=== PATIENT | female | born 1985 | race Two or more races ===

== ENCOUNTER 2017-06-30 13:30 | Inpatient (IN) | payer MEDICAID ==
[~2017-06-30] VITALS: Ht 157.5 cm; Wt 81.2 kg
[~2017-06-30 13:30] MED LIST: PREN1TAB49
[2017-06-30 14:22] VITALS: Ht 157.5 cm; Wt 81.2 kg
[2017-06-30 14:24] VITALS: BP 113/73; PULSE 77; RESP 18
[2017-06-30] MEDS ORDERED: CEFAZOLIN 2 GM/50 ML (PMX) 50 ML IV SCH (14:30)
[2017-06-30] MEDS ORDERED: OXYTOCIN 30 UNITS/LR 500 ML IV PRN (14:30)
[2017-06-30] MEDS ORDERED: CARBOPROST 250 MCG INJ IM PRN (14:30)
[2017-06-30] MEDS ORDERED: METHYLERGONOVINE 0.2 MG INJ IM PRN (14:30)
[2017-06-30] MEDS ORDERED: CEFAZOLIN 2 GM/50 ML (PMX) 50 ML IVPB ONE (14:30)
[2017-06-30 14:41] LABS: BASOPHILS % 0.2 % (0.0-2.0); EOSINOPHILS # 0.1 10^3/ul (0.0-0.5); EOSINOPHILS % 0.6 % (0.0-7.0); HEMATOCRIT 41.5 % (37.0-47.0); HEMOGLOBIN 14.6 g/dl (12.0-16.0); LYMPHOCYTES # 1.6 10^3/ul (0.8-2.9); LYMPHOCYTES % 17.9 % (15.0-51.0); MEAN CORPUSCULAR HEMOGLOBIN 32.2 pg (29.0-33.0); MEAN CORPUSCULAR HGB CONC 35.2 g/dl (32.0-37.0); MEAN CORPUSCULAR VOLUME 91.4 fl (82.0-101.0); MEAN PLATELET VOLUME 10.6 fl (7.4-10.4); MONOCYTE # 0.5 10^3/ul (0.3-0.9); NEUTROPHIL # 6.8 10^3/ul (1.6-7.5); PLATELET COUNT 272 10^3/UL (140-415); RED BLOOD COUNT 4.54 10^6/ul (4.20-5.40); RED CELL DISTRIBUTION WIDTH 12.7 % (11.5-14.5)
[2017-06-30 15:28] LABS: INR 0.91; PARTIAL THROMBOPLASTIN TIME 27.1 Sec (25.0-35.0); PROTIME 12.3 Sec (12.2-14.2)
[2017-06-30] MEDS: LACTATED RINGER'S 1,000 ML IV SCH ×2 (16:13→22:30)
[2017-06-30] MEDS ORDERED: OXYTOCIN 30 UNITS/LR 500 ML IV SCH (16:30)
[2017-06-30] MEDS ORDERED: CITRIC ACID/NA CITRATE 30 ML CUP ONE (17:32)
[2017-06-30] MEDS ORDERED: ONDANSETRON 4 MG INJ ONE ×2 (17:32→18:15)
--- NOTE | 2017-06-30 17:58 | HP ---
Date/Time of Note Date/Time of Note DATE: 06/30/17 TIME: 17:54 OB - History Hx of Present Free Text/Dictation Admitted for repeat at term Last Menstrual Period: Oct 06, 2016 Estimated Due Date: Jul 06, 2017 : 3 Para: 2 Care: Good Care Obstetrical Complications: None Medical Complications: None, Other (Previous 2) Past Family/Social History * Past Medical, Surgical, Family and Obstetric Histories reviewed from chart. Blood Type: O+ Rubella: immune RPR/VDRL: Negative GBS Status: Negative HBsAG: Negative OB Admission Exam Vital Signs Vital Signs Vital Signs Date Time Temp Pulse Resp B/P Pulse Ox O2 Delivery O2 Flow Rate FiO2 06/30/17 14:24 98.1 77 18 113/73 Room Air Physical Exam HEENT: WNL Heart: Rhythm Normal Lungs: Clear, Equal Abdomen: WNL Extremities: Normal Reflexes: Normal Cervical Dilatation: None Effacement: 0% Station: -3 Membranes: Intact Heart Rate: 150's Accelerations: Accelerations Present Decelerations: No Decelerations Varibility: Marked Contractions on Admission: None Last 72 hours Lab Results CBC & BMP 06/30/17 14:10 OB Assessment/Plan Reason for admission: section Other Assessment: Term gestation 2 Other plan: Repeat section LIAT RENDON MD Jun 30, 2017 17:58
[2017-06-30] MEDS ORDERED: CITRIC ACID/NA CITRATE 30 ML CUP PO ONE (18:00)
[2017-06-30] MEDS ORDERED: ONDANSETRON 4 MG INJ IV ONE (18:00)
[2017-06-30] MEDS ORDERED: CEFAZOLIN 1 GM INJ ONE (18:00)
[2017-06-30] MEDS ORDERED: OXYTOCIN 30 UNITS/LR 500 ML BAG IV ONE (18:00)
[2017-06-30] MEDS ORDERED: PHENYLephrine (100 MCG/ML) 5ML SYG ONE ×2 (18:15→18:56)
[2017-06-30] MEDS ORDERED: METOCLOPRAMIDE 10 MG INJ ONE (18:15)
[2017-06-30] MEDS ORDERED: morphine SULFATE/PF (10 MG/10 ML) INJ ONE (18:15)
[2017-06-30] MEDS ORDERED: OXYTOCIN 10 UNIT INJ ONE (18:15)
[2017-06-30] MEDS ORDERED: DEXAMETHASONE 4 MG/ML 1 ML INJ ONE (18:16)
[2017-06-30] MEDS ORDERED: KETOROLAC 30 MG INJ ONE (18:16)
[2017-06-30] MEDS ORDERED: HYDROmorphONE 1 MG/ML SYG IV PRN ×2 (19:00)
[2017-06-30] MEDS ORDERED: ACETAMINOPHEN 500 MG TAB PO PRN (19:00)
[2017-06-30] MEDS ORDERED: DIPHENHYDRAMINE 50 MG INJ IV PRN (19:00)
[2017-06-30] MEDS ORDERED: NALOXONE (0.4 MG/ML) INJ IV PRN (19:00)
[2017-06-30] MEDS ORDERED: morphine 4 MG/ML VIAL IV PRN (19:00)
[2017-06-30] MEDS ORDERED: morphine 2 MG INJ IV PRN (19:00)
[2017-06-30] MEDS ORDERED: KETOROLAC 30 MG INJ IV PRN (19:00)
[2017-06-30] MEDS ORDERED: NALBUPHINE HCL (10 MG/1 ML) INJ IV PRN (19:00)
[2017-06-30] MEDS ORDERED: HYDROCODONE/APAP (5/325) TAB PO PRN (19:00)
--- NOTE | 2017-06-30 19:44 | OPR ---
Operative Report Planned Procedure Procedure date Jun 30, 2017 Procedure(s) repeat C/S Performed by see signature line Assisting provider: RENAE NI MD Anesthesiologist: LORI SHIRLEY MD Pre-procedure diagnosis term gestation previous C/S Anesthesia Type: spinal Procedure Description Under satisfactory anaesthesia a midline incision was made from 2 3 fingerbreadth below the bellybutton 2-3 fingerbreadth above the symphysis of pubis around the previous scar and previous scar was removed Incision was extended laterally to the border of the Recti muscles on either sides. Incision was carried down with sharp and blunt dissection until fascia was reached. Anterior Recti muscle fascia was incised in mid portion and incision extended superiorly and inferiorly to the border of skin incision. Fascia was mobilized from muscle superiorly and Recti muscles were from midline using sharp and blunt dissection. Peritoneum was visualized; Avoiding bowel and bladder it was incised . Incision was extended superiorly and inferiorly. Bladder blade was placed. Posterior peritoneum covering the lower segment of the uterus and lower segment of the uterus were incised.Low transverse uterine incision was made on lower segment of the uterus. Incision extended laterally to the border of Round Lig. on either sides and baby was delivered from OT. position . Amniotic fluid appeared clear. Cord blood was obtained and cord had 3 vessels . Placenta was delivered spontaneously and appeared intact and complete. Intrauterine cavity was rubbed with a laparotomy sponge. Uterine incision was closed in 2 layers using running stitches of No1 Monocryl. Hemostasis appeared secure. Ovaries and Fallopian tubes were within normal limits. Announcing needle, lap sponge and instrument count to be correct abdomen was closed in layers as follows: Peritoneum and Recti muscles with running stitches of 20 Vicryl. Fascia with running stitch of No 1 PDS. Subcutaneous tissue with running stitches of 20 Chromic and skin was closed with subcuticular stitches of 2 Monocryl and Dermabond. Patient tolerated the procedure well and was transferred to [facility] in good condition. Post-Procedure Findings: Live Baby [], Apgars [] and [], weight [], position [], [] presentation []cord. Estimated blood loss: other (500 ml) Specimen(s): no Grafts/Implants: no Complication(s): no Pt Condition post procedure: stable Disposition: PACU Physician Certification I, the undersigned physician, hereby certify that I have discussed the procedure described in this consent form with this patient (or the patient's legal apparel trimmings sales representative), including: * The risk and benefits of the procedure; * Any adverse reactions that may reasonably be expected to occur; * Any alternative efficacious methods of treatment which may be medically viable ; * The potential problems that may occur during recuperation; * Potential for blood transfusion and associated risks/benefits; and * Any research or economic interest I may have regarding this treatment. I further certify that the patient/legally responsible person was encouraged to ask question and that all questions were answered. LIAT RENDON MD Jun 30, 2017 19:44
[2017-06-30] MEDS ORDERED: ONDANSETRON 4 MG INJ IV STA (21:17)
[2017-06-30 23:00] VITALS: BP 109/65; RESP 18
[2017-06-30 23:30] VITALS: BP 118/69; PULSE 61
[2017-07-01] VITALS (7 sets, daily range): BP systolic 4–122; BP diastolic 55–74; PULSE 74–88; RESP 16–19
[2017-07-01] MEDS: LACTATED RINGER'S 1,000 ML IV SCH ×3 (04:22→20:05)
[2017-07-01] MEDS ORDERED: OXYCODONE/ACETAMINOPHEN (5/325) TAB PO PRN (04:30)
[2017-07-01] MEDS ORDERED: LANOLIN 7 GM TUBE TOP PRN (04:30)
[2017-07-01] MEDS ORDERED: METHYLERGONOVINE 0.2 MG INJ IM PRN (04:30)
[2017-07-01] MEDS ORDERED: NA PHOSPHATE/BIPHOS 133 ML ENEMA PR PRN (04:30)
[2017-07-01] MEDS ORDERED: HYDROCODONE/APAP (5/325) TAB PO PRN (04:30)
[2017-07-01] MEDS ORDERED: OXYTOCIN 30 UNITS/LR 500 ML IV PRN (04:30)
[2017-07-01] MEDS ORDERED: MISOPROSTOL 200 MCG TAB PR PRN (04:30)
[2017-07-01] MEDS ORDERED: CARBOPROST 250 MCG INJ IM PRN (04:30)
[2017-07-01] MEDS: CLINDAMYCIN 300 MG CAP PO SCH ×3 (06:00→17:33)
[2017-07-01] MEDS: IBUPROFEN 800 MG TAB PO SCH ×3 (06:00→22:32)
[2017-07-01] MEDS: CEFAZOLIN 2 GM/50 ML (PMX) 50 ML IV SCH ×3 (09:49→20:24)
[2017-07-01] MEDS: SENNA/DOCUSATE NA (8.6MG/50MG) TAB PO SCH ×2 (09:50→20:24)
[2017-07-01] MEDS ORDERED: BISACODYL 10 MG SUPP PR ONE ×2 (10:00→20:22)
[2017-07-01 11:20] LABS: BASOPHILS % 0.2 % (0.0-2.0); EOSINOPHILS # 0.1 10^3/ul (0.0-0.5); EOSINOPHILS % 0.5 % (0.0-7.0); HEMOGLOBIN 11.2 g/dl (12.0-16.0); LYMPHOCYTES # 2.3 10^3/ul (0.8-2.9); LYMPHOCYTES % 18.7 % (15.0-51.0); MEAN CORPUSCULAR HEMOGLOBIN 31.3 pg (29.0-33.0); MEAN CORPUSCULAR HGB CONC 33.9 g/dl (32.0-37.0); MEAN CORPUSCULAR VOLUME 92.2 fl (82.0-101.0); MEAN PLATELET VOLUME 10.8 fl (7.4-10.4); MONOCYTE # 0.7 10^3/ul (0.3-0.9); MONOCYTES % 5.6 % (0.0-11.0); NEUTROPHILS % 74.8 % (39.0-77.0); PLATELET COUNT 211 10^3/UL (140-415); RED BLOOD COUNT 3.58 10^6/ul (4.20-5.40); RED CELL DISTRIBUTION WIDTH 12.9 % (11.5-14.5)
--- NOTE | 2017-07-01 18:49 | PN ---
Date/Time of Note Date/Time of Note DATE: 07/01/17 TIME: 18:48 Assessment/Plan VTE Prophylaxis VTE Prophylaxis Intervention: ambulation Lines/Catheters IV Catheter Type (from Nrsg): Peripheral IV Assessment/Plan Assessment/Plan Postop day 1 status post Advanced diet and ambulate Tenia to monitor vital signs Subjective 24 Hr Interval Summary Normal bowel movement Passing flatus Complaint of lower abdominal pain Constitutional: BM, ambulates, flatus, improved, no complaints, urine output Pain Control: well controlled Exam/Review of Systems Vital Signs Vitals Vital Signs Date Time Temp Pulse Resp B/P Pulse Ox O2 Delivery O2 Flow Rate FiO2 07/01/17 15:19 97 21 07/01/17 12:11 97.9 83 19 111/55 Room Air Intake and Output 06/30/17 06/30/17 07/01/17 15:00 23:00 07:00 Intake Total 1000 ml Output Total 300 ml 400 ml Balance 700 ml -400 ml Exam Free Text/Dictation Abdomen is soft not distended bowel sounds present Incision is covered Constitutional: alert, oriented, well developed Psych: nl mood/affect, no complaints Head: atraumatic, normocephalic Eyes: EOMI, nl conjunctiva, nl lids, nl sclera ENMT: mucosa pink and moist, nl external ears & nose, nl lips & teeth, nl nasal mucosa & septum Neck: non-tender, supple Respiratory: clear to auscultation, normal air movement Cardiovascular: nl pulses, regular rate and rhythm Gastrointestinal: nl liver, spleen, non-tender, soft Drains None Musculoskeletal: nl extremities to inspection, nl gait and stance Extremities: normal pulses Neurological: DRILLER MACHINE II-XII intact, nl mental status, nl speech, nl strength Skin: nl turgor, rash or lesions Lymph: nl lymph nodes Results Result Diagram: 07/01/17 ILAT JACKSON MD Jul 01, 2017 18:49
[2017-07-02] MEDS: CLINDAMYCIN 300 MG CAP PO SCH ×4 (00:01→17:17)
[2017-07-02] MEDS: LACTATED RINGER'S 1,000 ML IV SCH (00:01)
[2017-07-02 04:00] VITALS: BP 105/53; PULSE 71; RESP 18
[2017-07-02] MEDS: IBUPROFEN 800 MG TAB PO SCH ×3 (05:55→21:30)
[2017-07-02 07:50] VITALS: BP 99/61; PULSE 69; RESP 16
[2017-07-02] MEDS: SENNA/DOCUSATE NA (8.6MG/50MG) TAB PO SCH ×2 (08:55→21:30)
[2017-07-02 16:00] VITALS: BP 110/70; PULSE 64; RESP 16
--- NOTE | 2017-07-02 18:11 | DS ---
Date/Time of Note Date/Time of Note DC home next day vital signs remained stable DATE: 07/02/17 TIME: 18:10 Obstetrical Discharge Record Final Diagnosis Final Diagnosis: Term delivered Other Final Diagnosis Status post repeat Section Section: Repeat Condition on Discharge Physical Assessment Last Vitals: See nurse's note Voiding: Yes Bowel Movement: Yes Breast: Soft, non-tender, Filling Fundus: Firm Abdomen and Incision: Abdomen is soft not distended, sounds are present Incision is healing well Episiotomy: Not applicable Calf Tenderness: No Patient Condition: Good LIAT RENDON MD Jul 02, 2017 18:11
--- NOTE | 2017-07-02 18:14 | PD.PPDC ---
[employer] Discharge Instruction Provider Information Physician Information 32-year-old female had repeat section Diagnosis Final Diagnosis: Status post delivery Condition Patient Condition: Good Diet Diet: Resume Regular Diet Activity/Restrictions Activity: February Shower Restrictions: No Exercising No Lifting Nothing in the Vagina Return to Work or School: Sep 01, 2017 Follow-up Follow-up with Physician: 1, Week/Weeks (In clinic for follow-up) Return to clinic for NEUROLOGY EPILEPSY PHYSICIAN Instructions: Fever greater than 101 Chills OB Instructions: Breast Tenderness Depression Surgical Instructions: Incisional Drainage Incisional Redness LIAT RENDON MD Jul 02, 2017 18:14
--- NOTE | 2017-07-02 18:14 | DS ---
Date/Time of Note Date/Time of Note DATE: 07/02/17 TIME: 18:12 Discharge Summary Admission/Discharge Info Admit Date/Time Jun 30, 2017 at 13:30 Discharge Date/Time July 03, 2017 Discharge Diagnosis Status post delivery Patient Condition: Good Procedures Repeat section Hx of Present Illness 32-year-old female had repeat section Hospital Course Uncomplicated Home Meds Reported Medications Vits W-Ca,Fe,Fa(<1MG) () 1 Tab Tablet 09/13/10 Follow-up Plan 1 week in clinic for follow Primary Care Provider Care Physician No Primary Time spent on discharge: > 30 minutes LIAT RENDON MD Jul 02, 2017 18:14
[2017-07-02] MEDS ORDERED: IBUP800T25 PO (18:15)
[2017-07-02 20:30] VITALS: BP 126/78; PULSE 69; RESP 18
[2017-07-03 04:00] VITALS: BP 116/66; PULSE 69; RESP 18
[2017-07-03] MEDS: CLINDAMYCIN 300 MG CAP PO SCH ×3 (05:54→12:00)
[2017-07-03] MEDS: IBUPROFEN 800 MG TAB PO SCH (05:54)
[2017-07-03 07:50] VITALS: BP 110/72; PULSE 58; RESP 18
[2017-07-03] MEDS ORDERED: MEASLES,MUMPS,RUBELLA VACCINE INJ SC* ONE (09:00)
[2017-07-03] MEDS ORDERED: DIPHTH/TET/ACEL PERTUSS (ADULT) 0.5 ML VIAL IM* ONE (09:00)
[2017-07-03] MEDS: SENNA/DOCUSATE NA (8.6MG/50MG) TAB PO SCH (09:13)
== END 2017-07-03 16:00 | disposition home or self-care (01) | DRG 766 ==
LOC: L-D 13:30 → PP1 22:54
PROVIDERS: ADMIT Obstetrics & Gynecology; ATTEND Obstetrics & Gynecology
PROC: 10D00Z1 Extraction of Products of Conception, Low, Open Approach (ICD-10-PCS; principal; 2017-06-30 15:30)
DX: O34.211 Maternal care for low transverse scar from previous cesarean delivery (principal); Z37.0 Single live birth; Z3A.00 Weeks of gestation of pregnancy not specified
CPT/HCPCS: 85025; 85610; 85730; 86592; 86850; 86900; 86901; 87340; 90715; 94760; 99464; J0690; J1100; J1885; J2274; J2370; J2405; J2590; J2765; J7120